=== PATIENT | female | born 1940 | race Caucasian/White ===

== ENCOUNTER 2023-11-23 10:58 | Outpatient (CLI) | payer MEDICARE, MEDICAID, SELFPAY ==
--- NOTE | ~2023-11-23 | US_ITS ---
EXAMINATION: US pelvic complete DATE: 11/23/2023 12:15 INDICATION: Right-sided ovarian cyst TECHNIQUE: Multiple transabdominal and endovaginal sonographic images of the pelvis were obtained. COMPARISON: None. FINDINGS: The uterus is not visualized and may be surgically absent. The right ovary measures 2.1 x 1.2 x 0.9 c m. With 1.6 cm anechoic right ovarian cyst/follicle. The left ovary measures 2.7 x 1.8 x 2.3 cm. Vasc ular flow identified at both ovaries on color Doppler. There is no free fluid in the pelvis. IMPRESSION: 1. 1.6 cm anechoic cyst/follicle at the right ovary. 2. Uterus not visualized and may be surgically absent. Correlate with clinical history. Reviewed, dictated and finalized at location A. [facility] [employer]
== END 2023-11-23 10:59 | disposition home or self-care (01) ==
PROVIDERS: PCP Internal Medicine Gastroenterology; Visit Provider Physician Assistant
DX: N83.201 Unspecified ovarian cyst, right side (principal)
CPT/HCPCS: 76856